=== PATIENT | female | born 1955 | race Caucasian/White ===

== ENCOUNTER 2017-07-26 12:49 | Inpatient (IN) | payer OTHER ==
[2017-07-26 12:50] VITALS: BMI 55.5
[2017-07-26] MEDS ORDERED: Metoprolol 1 mg/ml Inj IVP STA ×2 (13:48→15:13)
--- NOTE | 2017-07-26 14:33 | RAD ---
HISTORY: SOB COMPARISON: Chest x-ray performed 07/19/17 TECHNIQUE: Chest, one view. FINDINGS: Examination limited by habitus. LUNGS: Bilateral hilar prominence. Moderate pulmonary venous congestion. Please note that chest x-ray has limited sensitivity for the detection of pulmonary masses. PLEURA: No significant pleural effusion identified. No definite pneumothorax . CARDIOVASCULAR: Cardiomegaly. OSSEOUS STRUCTURES: No acute osseous abnormality identified. VISUALIZED UPPER ABDOMEN: Unremarkable. OTHER FINDINGS: None. IMPRESSION: Examination markedly limited by habitus. Cardiomegaly. Moderate pulmonary venous congestion. Bilateral hilar prominence.
[2017-07-26 14:49] LABS: BASO # 0.1 K/uL (0.0-0.2); BASO % 0.9 % (0.0-2.0); EOS # 0.5 K/uL (0.0-0.7); HEMOGLOBIN 13.1 g/dL (11.0-16.0); LYMPH # 1.9 K/uL (1.0-4.3); LYMPH % 21.7 % (20.0-40.0); MEAN CORPUSCULAR HEMOGLOBIN 27.4 pg (27.0-31.0); MEAN PLATELET VOLUME 8.6 fL (7.2-11.7); MONO # 0.8 K/uL (0.0-0.8); MONO % 9.6 % (0.0-10.0); NEUT # 5.4 K/uL (1.8-7.0); NEUT % 61.8 % (50.0-75.0); RBC 4.79 Mil/uL (3.80-5.20); RED CELL DISTRIBUTION WIDTH 15.5 % (11.5-14.5); WHITE BLOOD COUNT 8.8 K/uL (4.8-10.8)
[2017-07-26] MEDS ORDERED: Digoxin 500 mcg/2ml (0.5 mg/2ml) Inj IVP STA (15:03)
[2017-07-26] MEDS ORDERED: Sodium Chloride 0.9% 500 ML IV STA (15:13)
[2017-07-26] MEDS ORDERED: Digoxin 500 mcg/2ml (0.5 mg/2ml) Inj ONE (15:14)
[2017-07-26 15:19] LABS: INR 1.2; PROTHROMBIN TIME 13.2 SECONDS (9.7-12.2)
[2017-07-26] MEDS ORDERED: Metoprolol 1 mg/ml Inj IVP ONE ×4 (15:20→15:30)
[2017-07-26 15:22] LABS: ALB/GLOB RATIO 1.3 (1.0-2.1); ALBUMIN 3.6 g/dL (3.5-5.0); ALT/SGPT 43 U/L (9-52); AST/SGOT 26 U/L (14-36); BLOOD UREA NITROGEN 22 mg/dL (7-17); CALCIUM 9.2 mg/dl (8.6-10.4); GFR AFRICAN-AMERICAN > 60; GFR NON-AFRICAN AMERICAN > 60; MAGNESIUM 1.7 mg/dL (1.6-2.3)
[2017-07-26 15:40] VITALS: PULSE 145
--- NOTE | 2017-07-26 15:57 | CP.PCM.CON ---
History of Present Illness - History of Present Illness History of Present Illness: CCU Consult Note CC: Rapid Afib HPI: Pt is a 61yo female with past medical history of HTN, HCHOL, Hypothyroidism PE, DM2 presented to the emergency department for shortness of breathe. Patient reports that she has had bronchitis for the past three weeks and her breathing has not improved. Upon presentation to the ER ECG showed afib. Patient reports priot diagnosis of cardiac arrythmia but was unsure as to what type. 15mg of lopressor, 0.5mg digoxin, 500ml NS and BiPap were administered in the ED. ICU was consulted for afib and shortness of breath. PMHx: HTN, HCHOL, hypothyroidism, PE, DM2 and gastritis SHx: denied Allergies: NKDA Social: former smoker, denied ETOH and drugs This is a 61F with possible paroxysmal afib/ new onset afib with dyspnea Cardio: Afib digoxin 0.5mg given in ER Lopressor 15mg given in ER 500ml bolus NS given in ER Lopressor 75mg PO Q12hr follow up: CXR, pro BNP, TSH, dimer no ICU admission needed at this time. Past Patient History - Infectious Disease Hx of Infectious Diseases: None - Past Medical History & Family History Past Medical History?: Yes - Past Social History Smoking Status: Former Smoker - CARDIAC Hx Cardiac Disorders: Yes Hx Hypercholesterolemia: Yes Hx Hypertension: Yes - PULMONARY Hx Respiratory Disorders: Yes Hx Pulmonary Embolism: Yes Other/Comment: HX OF COLAPSE LUNGS - NEUROLOGICAL Hx Neurological Disorder: No - RENAL Hx Chronic Kidney Disease: No - ENDOCRINE/METABOLIC Hx Endocrine Disorders: Yes Hx Hypothyroidism: Yes - HEMATOLOGICAL/ONCOLOGICAL Hx Blood Disorders: No - INTEGUMENTARY Hx Dermatological Problems: No - MUSCULOSKELETAL/RHEUMATOLOGICAL Hx Musculoskeletal Disorders: Yes Hx Arthritis: Yes (KNEES) - GASTROINTESTINAL Hx Gastrointestinal Disorders: Yes Other/Comment: UPPER ABDOMINAL PAIN - GENITOURINARY/GYNECOLOGICAL Hx Genitourinary Disorders: No - PSYCHIATRIC Hx Psychophysiologic Disorder: No Hx Substance Use: No - SURGICAL HISTORY Hx Surgeries: Yes Hx Hysterectomy: Yes Other/Comment: CYST REMOVED LEFT BREAST - ANESTHESIA Hx Anesthesia: Yes Hx Anesthesia Reactions: No Hx Malignant Hyperthermia: No Meds Allergies/Adverse Reactions: Allergies Allergy/AdvReac Type Severity Reaction Status Date / Time No Known Allergies Allergy Verified 01/04/15 08:00 - Medications Medications: Current Medications Lactated Ringer's (Lactated Ringer's) 1,000 mls @ 100 mls/hr IV .Q10H [facility] Metoprolol Tartrate (Lopressor) 75 mg PO Q12 [facility]LA Results - Vital Signs Recent Vital Signs: Last Vital Signs Temp 97.3 F L 07/26/17 13:09 Pulse 83 07/26/17 15:30 Resp 16 07/26/17 15:04 BP 135/76 07/26/17 15:24 Pulse Ox 100 07/26/17 15:04 - Labs Result Diagrams: 07/26/17 14:42 07/26/17 14:42 Labs: Laboratory Results - last 24 hr 07/26/17 07/26/17 07/26/17 14:42 14:42 14:42 WBC 8.8 RBC 4.79 Hgb 13.1 Hct 39.8 MCV 83.0 D MCH 27.4 MCHC 33.0 RDW 15.5 H Plt Count 254 MPV 8.6 Neut % (Auto) 61.8 Lymph % (Auto) 21.7 [place] % (Auto) 9.6 Eos % (Auto) 6.0 H Baso % (Auto) 0.9 Neut # (Auto) 5.4 Lymph # (Auto) 1.9 [place] # (Auto) 0.8 Eos # (Auto) 0.5 Baso # (Auto) 0.1 PT 13.2 H INR 1.2 APTT 34 D-Dimer, Quantitative 279 H Sodium 141 Potassium 4.1 Chloride 106 Carbon Dioxide 25 Anion Gap 14 BUN 22 H Creatinine 0.7 Est GFR ( Amer) > 60 Est GFR (Non-Af Amer) > 60 Random Glucose 126 H Calcium 9.2 Magnesium 1.7 Total Bilirubin 0.5 AST 26 ALT 43 Alkaline Phosphatase 112 Total Protein 6.5 Albumin 3.6 Globulin 2.9 Albumin/Globulin Ratio 1.3
[2017-07-26] MEDS ORDERED: Lactated Ringer's 1,000 ML ONE (16:31)
[2017-07-26 16:33] LABS: T3 1.56 nmol/L (1.49-2.60)
[2017-07-26] MEDS: Lactated Ringer's 1,000 ML IV SCH (16:35)
[2017-07-26 17:13] LABS: B-TYPE NATRIURETIC PEPTIDE 1260 pg/mL (0-900)
[2017-07-26 17:20] LABS: FREE T4 1.23 ng/dL (0.78-2.19)
--- NOTE | 2017-07-26 17:29 | C.PDOC ---
Time Seen by Provider: 07/26/17 13:35 Chief Complaint (Nursing): Shortness Of Breath History Per: Patient Onset/Duration Of Symptoms: Days (about 2 weeks) Current Symptoms Are (Timing): Worse Current Respiratory Medications: See Home Med List Severity: Moderate Reports Recently: Treated By A Physician Additional History Per: Prior Records Past Medical History Reviewed: Historical Data, Nursing Documentation, Vital Signs Vital Signs: Last Vital Signs Temp 97.3 F L 07/26/17 13:09 Pulse 106 H 07/26/17 16:52 Resp 22 07/26/17 16:52 BP 122/69 07/26/17 16:52 Pulse Ox 100 07/26/17 17:31 - Medical History PMH: Arthritis (KNEES), Cardia Arrhythmia, Diabetes, HTN, Hypercholesterolemia, Hypothyroidism, Pulmonary Embolism - [facility] Procedures CLOSED ENDOSCOPIC BIOPSY OF LARGE INTESTINE (11/10/14) ESOPHAGOGASTRODUODENOSCOPY [EGD] W/CLOSED BIOPSY (01/04/15) Family History: States: Unknown Family Hx - Social History Hx Tobacco Use: No Hx Alcohol Use: No Hx Substance Use: No - Immunization History Hx Influenza Vaccination: No Hx Pneumococcal Vaccination: No Review Of Systems Except As Marked, All Systems Reviewed And Found Negative. Constitutional: Negative for: Fever Cardiovascular: Positive for: Edema. Negative for: Chest Pain Respiratory: Positive for: Shortness of Breath. Negative for: Cough Gastrointestinal: Negative for: Vomiting Musculoskeletal: Negative for: Neck Pain Neurological: Negative for: Weakness, Numbness, Altered Mental Status Physical Exam - Physical Exam Appears: In Acute Distress, Chronically Ill Skin: Normal Color, Warm, Dry Head: Atraumatic, Normacephalic Eye(s): bilateral: PERRL, EOMI Neck: Normal ROM, Supple Cardiovascular: Rhythm Irregular (tachycardia) Respiratory: No Accessory Muscle Use, Rales (at bases) Gastrointestinal/Abdominal: Soft, No Tenderness Extremity: Normal ROM, Pedal Edema Neurological/Psych: Oriented x3, Normal Motor, Normal Sensation ED Course And Treatment - Laboratory Results Result Diagrams: 07/26/17 14:42 07/26/17 14:42 Lab Interpretation: Abnormal Interpretation Of Abnormal: Elevated BNP ECG: Interpreted By Me, Viewed By Me ECG Rhythm: Atrial Fibrillation, Nonspecific Changes ECG Interpretation: Abnormal Rate From EC O2 Sat by Pulse Oximetry: 100 Pulse Ox Interpretation: Normal - Radiology CXR: Viewed By Me, Read By Radiologist CXR Interpretation: Yes: Cardiomegaly, Other (CHF) Progress Note: Pt's blood pressure was borderline upon ED arrival. Pt's HR decreased and BP improved after meds. Pt feels better. Reassessment Condition: Improved - Physician Consult Information Physician Contacted: Ki Schneider (ICU) Outcome Of Conversation: Pt evaluated pt in the ED and requested pt be placed on BiPAP and given IV fluid bolus, Metoprolol 5mg IVP x3, and Digoxin 0.5mg IV. after which pt improved. Therefore he states that there is no need for ICU admission and that pt can safely be admitted to telemetry floor. Progress - Interventions Interventions:: Observation, Intravenous fluid, Oxygen - Medications Administered Intravenous: Other (Digoxin, Metoprolol) - Data Reviewed Data Reviewed: Lab, Diagnostic imaging, EKG, Old records - Patient Status Patient status: Partially improved - Critical Care Citical Care: Excluding Proc Time Critical Care Time: 60 minutes - Continuity of Care Discussed patient case with:: Patient, Family-HIPPA compliant, ED Nurse, Covering for PMD Discussed pt. case with strategic sourcing consultant/specialty: Pulmonary/Crit. Care - Patient Plan Patient Plan: Admission, Telemetry Disposition Discussed With Dr.: Emmy Abel (Covering) Comment: He accepted pt on his service. Doctor Will See Patient In The: Hospital Counseled Patient/Family Regarding: Studies Performed, Diagnosis - Disposition Disposition: HOSPITALIZED Disposition Time: 18:00 Condition: GUARDED - Clinical Impression Clinical Impression: Atrial fibrillation with rapid ventricular response, Acute exacerbation of CHF (congestive heart failure)
[2017-07-26] MEDS: (Novolin R) Insulin Human Regular 100 units/ml vial SC SCH (21:30)
[2017-07-26] MEDS: GlipiZIDE 5 mg SR Tab PO SCH (21:31)
[2017-07-26] MEDS ORDERED: Iodixanol 320 MG/ML 100 ML BOTTLE IV ONE (21:45)
[2017-07-26] MEDS ORDERED: Enoxaparin 30 mg Syringe SC SCH (22:00)
--- NOTE | 2017-07-26 22:47 | CT ---
EXAM: CT Angiography Chest With Intravenous Contrast EXAM DATE/TIME: 07/26/2017 8:45 PM CLINICAL HISTORY: 61 years old, female; Signs and symptoms and abnormal findings; Abnormal diagnostic tests; Elevated d-dimer; Shortness of breath; Additional info: D. [id number]. To R/O pe TECHNIQUE: Axial computed tomographic angiography images of the chest with intravenous contrast using pulmonary embolism protocol. All CT scans at this facility use one or more dose reduction techniques, viz.: automated exposure control; ma/kV adjustment per patient size (including targeted exams where dose is matched to indication; i.e. head); or iterative reconstruction technique. MIP reconstructed images were created and reviewed. Coronal and sagittal reformatted images were created and reviewed. CONTRAST: 100 mL of VISIPAQUE 320 administered intravenously. COMPARISON: None is available currently. FINDINGS: LIMITATIONS: Artifact related to the patient's body habitus. Mild respiratory motion artifact. PULMONARY ARTERIES: Exam is somewhat limited for the detection of pulmonary emboli secondary to respiratory motion. Allowing for this, no definite pulmonary emboli are seen. AORTA: Exam is nondiagnostic for the detection of aortic dissection because of suboptimal enhancement of the aorta. LUNGS: Findings suspicious for subtle diffuse ground glass consolidation in the lungs bilaterally. There is a mosaic appearance of the lungs bilaterally, with scattered areas of hyperlucency seen, along with subtle diffuse areas increased attenuation. Compressive and/or dependent atelectatic changes noted in the posterior lung bases. PLEURAL SPACE: Moderate bilateral pleural effusions. No pneumothorax is seen. HEART: Heart appears mildly enlarged. Coronary artery calcification. No evidence of significant pericardial effusion. BONES/JOINTS: No acute bony abnormality identified. SOFT TISSUES: No acute abnormality of the visualized soft tissues seen. LYMPH NODES: Mild bilateral hilar and mediastinal lymphadenopathy. Most of the lymph nodes are small in size, but there are multiple mildly enlarged lymph nodes visualized. No evidence of diffuse pathologic lymphadenopathy. IMPRESSION: - Moderate bilateral pleural effusions. - Findings suspicious for subtle, diffuse groundglass consolidation in the lungs bilaterally. In an acute setting, this could be due to diffuse groundglass infiltrates/pneumonia or early alveolar pulmonary edema. Recommend clinical correlation. - Otherwise, no evidence of significant acute process. No evidence of pulmonary embolism. - Mild hilar and mediastinal lymphadenopathy. This is a nonspecific finding, and may be reactive in etiology. - Mild cardiomegaly. - See above for remaining findings.
[2017-07-26 23:01] LABS: CK-MB 0.52 ng/mL (0.0-3.38)
--- NOTE | 2017-07-26 23:16 | CP.PCM.HP ---
History of Present Illness - History of Present Illness History of Present Illness: Pt is a 61yo female with past medical history of HTN, HCHOL, Hypothyroidism PE, DM2 presented to the emergency department for shortness of breathe. Patient reports that she has had bronchitis for the past three weeks and her breathing has not improved. Upon presentation to the ER ECG showed afib. Patient reports priot diagnosis of cardiac arrythmia but was unsure as to what type. IN ER PT BECAME HYPOTENSIVE FROM MULTIPLE SHORT TERM IV MEDICATION RESPONDED TO IV FLUIDS Present on Admission - Present on Admission Any Indicators Present on Admission: No Review of Systems - Review of Systems All systems: reviewed and no additional remarkable complaints except (SOB / PALPITAION) Past Patient History - Infectious Disease Hx of Infectious Diseases: None - Past Medical History & Family History Past Medical History?: Yes - Past Social History Smoking Status: Former Smoker - CARDIAC Hx Cardia Arrhythmia: Yes Hx Hypercholesterolemia: Yes Hx Hypertension: Yes - PULMONARY Hx Pulmonary Embolism: Yes - NEUROLOGICAL Hx Neurological Disorder: No - RENAL Hx Chronic Kidney Disease: No - ENDOCRINE/METABOLIC Hx Hypothyroidism: Yes - HEMATOLOGICAL/ONCOLOGICAL Hx Blood Disorders: No Hx Blood Transfusions: No - INTEGUMENTARY Hx Dermatological Problems: No - MUSCULOSKELETAL/RHEUMATOLOGICAL Hx Arthritis: Yes (KNEES) Hx Falls: No - GASTROINTESTINAL Hx Gastrointestinal Disorders: Yes Other/Comment: UPPER ABDOMINAL PAIN - GENITOURINARY/GYNECOLOGICAL Hx Genitourinary Disorders: No - PSYCHIATRIC Hx Substance Use: No - SURGICAL HISTORY Hx Surgeries: Yes Hx Hysterectomy: Yes Other/Comment: CYST REMOVED LEFT BREAST - ANESTHESIA Hx Anesthesia: Yes Hx Anesthesia Reactions: No Hx Malignant Hyperthermia: No Has any member of the family had a problem w/ anesthesia?: No Meds Allergies/Adverse Reactions: Allergies Allergy/AdvReac Type Severity Reaction Status Date / Time No Known Allergies Allergy Verified 01/04/15 08:00 Physical Exam - Constitutional Appears: Well - Head Exam Head Exam: ATRAUMATIC, NORMAL INSPECTION, NORMOCEPHALIC - Eye Exam Eye Exam: EOMI, Normal appearance, PERRL - ENT Exam ENT Exam: Mucous Membranes Moist, Normal Exam - Neck Exam Neck exam: Positive for: Normal Inspection - Respiratory Exam Respiratory Exam: Clear to Auscultation Bilateral, NORMAL BREATHING PATTERN - Cardiovascular Exam Cardiovascular Exam: Irregular Rhythm, +S1, +S2, Systolic Murmur - GI/Abdominal Exam GI & Abdominal Exam: Normal Bowel Sounds, Soft. absent: Tenderness - Rectal Exam Rectal Exam: Deferred - Extremities Exam Extremities exam: Positive for: normal inspection. Negative for: calf tenderness - Back Exam Back exam: NORMAL INSPECTION Results - Vital Signs Recent Vital Signs: Last Vital Signs Temp 99.2 F 07/26/17 20:18 Pulse 94 H 07/26/17 20:18 Resp 20 07/26/17 20:18 BP 132/82 07/26/17 20:18 Pulse Ox 98 07/26/17 20:18 - Labs Result Diagrams: 07/27/17 07:36 07/27/17 07:36 Labs: Laboratory Results - last 24 hr 07/26/17 07/26/17 07/26/17 14:42 14:42 14:42 WBC 8.8 RBC 4.79 Hgb 13.1 Hct 39.8 MCV 83.0 D MCH 27.4 MCHC 33.0 RDW 15.5 H Plt Count 254 MPV 8.6 Neut % (Auto) 61.8 Lymph % (Auto) 21.7 [place] % (Auto) 9.6 Eos % (Auto) 6.0 H Baso % (Auto) 0.9 Neut # (Auto) 5.4 Lymph # (Auto) 1.9 [place] # (Auto) 0.8 Eos # (Auto) 0.5 Baso # (Auto) 0.1 PT 13.2 H INR 1.2 APTT 34 D-Dimer, Quantitative 279 H Sodium 141 Potassium 4.1 Chloride 106 Carbon Dioxide 25 Anion Gap 14 BUN 22 H Creatinine 0.7 Est GFR ( Amer) > 60 Est GFR (Non-Af Amer) > 60 POC Glucose (mg/dL) Random Glucose 126 H Calcium 9.2 Magnesium 1.7 Total Bilirubin 0.5 AST 26 ALT 43 Alkaline Phosphatase 112 Total Creatine Kinase CK-MB (Mass) Troponin I < 0.0120 NT-Pro-B Natriuret Pep 1260 H Total Protein 6.5 Albumin 3.6 Globulin 2.9 Albumin/Globulin Ratio 1.3 Free T4 Total T3 1.56 TSH 3rd Generation 07/26/17 07/26/17 07/26/17 14:42 21:23 22:35 WBC RBC Hgb Hct MCV MCH MCHC RDW Plt Count MPV Neut % (Auto) Lymph % (Auto) [place] % (Auto) Eos % (Auto) Baso % (Auto) Neut # (Auto) Lymph # (Auto) [place] # (Auto) Eos # (Auto) Baso # (Auto) PT INR APTT D-Dimer, Quantitative Sodium Potassium Chloride Carbon Dioxide Anion Gap BUN Creatinine Est GFR ( Amer) Est GFR (Non-Af Amer) POC Glucose (mg/dL) 101 Random Glucose Calcium Magnesium Total Bilirubin AST ALT Alkaline Phosphatase Total Creatine Kinase 48 CK-MB (Mass) 0.52 Troponin I < 0.0120 NT-Pro-B Natriuret Pep Total Protein Albumin Globulin Albumin/Globulin Ratio Free T4 1.23 Total T3 TSH 3rd Generation 5.44 H Assessment & Plan (1) Acute exacerbation of CHF (congestive heart failure) Status: Acute (2) Atrial fibrillation with rapid ventricular response Status: Acute
[2017-07-27] MEDS: Lactated Ringer's 1,000 ML IV SCH (01:40)
[2017-07-27] MEDS: Levothyroxine 75 MCG TAB PO SCH (06:11)
[2017-07-27] MEDS: (Novolin R) Insulin Human Regular 100 units/ml vial SC SCH ×4 (07:55→21:56)
[2017-07-27 08:05] LABS: ALB/GLOB RATIO 1.2 (1.0-2.1); ALBUMIN 3.6 g/dL (3.5-5.0); ALT/SGPT 54 U/L (9-52); AST/SGOT 34 U/L (14-36); BLOOD UREA NITROGEN 18 mg/dL (7-17); CALCIUM 8.9 mg/dl (8.6-10.4); GFR AFRICAN-AMERICAN > 60; GFR NON-AFRICAN AMERICAN > 60
[2017-07-27 08:06] LABS: CK-MB 0.57 ng/mL (0.0-3.38)
[2017-07-27 08:14] LABS: HEMOGLOBIN 13.1 g/dL (11.0-16.0); MEAN CELL VOLUME 83.6 fL (81.0-99.0); MEAN CORPUSCULAR HEMOGLOBIN 28.2 pg (27.0-31.0); MEAN CORPUSCULAR HGB CONC 33.7 g/dL (33.0-37.0); MEAN PLATELET VOLUME 8.8 fL (7.2-11.7); RBC 4.66 Mil/uL (3.80-5.20); RED CELL DISTRIBUTION WIDTH 15.1 % (11.5-14.5); WHITE BLOOD COUNT 8.9 K/uL (4.8-10.8)
[2017-07-27] MEDS: Sodium Chloride 0.9% 1,000 ML IV SCH ×2 (08:46→22:01)
--- NOTE | 2017-07-27 09:32 | CP.PCM.PN ---
Subjective - Date & Time of Evaluation Date of Evaluation: 07/27/17 Time of Evaluation: 09:00 - Subjective Subjective: RN INTERNATIONAL NOTES RN called to reported HR IN 170's AND A FIB patient seen and examined, c/o heart raising fast , denies any chest pain, sob , diaphoresis, abdominal pain N/V/ a fib on monitor non sustained rate between 150- 170's Objective - Vital Signs/Intake and Output Vital Signs (last 24 hours): Temp Pulse Resp BP Pulse Ox 97.6 F 120 H 18 130/92 H 97 07/27/17 07:00 07/27/17 08:46 07/27/17 07:00 07/27/17 08:46 07/27/17 07:00 - Medications Medications: Current Medications Aspirin (Ecotrin) 81 mg PO DAILY [facility] Diltiazem HCl (Cardizem) 30 mg PO Q6 [facility] Enoxaparin Sodium (Lovenox) 100 mg SC Q12 [facility] Furosemide (Lasix) 40 mg IVP DAILY [facility] Glipizide (Glucotrol Xl) 5 mg PO [facility] Last Admin: 07/26/17 21:31 Dose: 5 mg Lactated Ringer's (Lactated Ringer's) 1,000 mls @ 100 mls/hr IV .Q10H [facility] Last Admin: 07/27/17 01:40 Dose: Not Given Sodium Chloride (Sodium Chloride 0.9%) 1,000 mls @ 100 mls/hr IV .Q10H [facility] Last Admin: 07/27/17 08:46 Dose: 100 mls/hr Insulin Human Regular (Novolin R) 1 unit SC ACHS [facility] PRN Reason: Protocol Last Admin: 07/27/17 07:55 Dose: Not Given Levothyroxine Sodium (Synthroid) 75 mcg PO DAILY@0630 [facility] Last Admin: 07/27/17 06:11 Dose: 75 mcg Metformin HCl (Glucophage) 500 mg PO BID [facility] Metoprolol Tartrate (Lopressor) 75 mg PO Q12 [facility] Last Admin: 07/26/17 21:32 Dose: Not Given Montelukast Sodium (Singulair) 10 mg PO DAILY [facility] Rosuvastatin Calcium (Crestor) 5 mg PO HS [facility] Last Admin: 07/26/17 21:31 Dose: 5 mg - Labs Labs: 07/27/17 07:36 07/27/17 07:36 PT 13.2 SECONDS (9.7-12.2) H 07/26/17 14:42 INR 1.2 07/26/17 14:42 APTT 34 SECONDS (21-34) 07/26/17 14:42 - Constitutional Appears: No Acute Distress - Respiratory Exam Respiratory Exam: Decreased Breath Sounds, NORMAL BREATHING PATTERN - Cardiovascular Exam Cardiovascular Exam: Irregular Rhythm, +S1, +S2 (a fib on monitor ) Assessment and Plan - Assessment and Plan (Free Text) Assessment: A/P 61yo female with past medical history of HTN, HCHOL, Hypothyroidism DM2 admitted for shortness of breath/ a FIB Patient received cardizem IV push and digoxin on admission EKG - done . a fib with RVR CARDIZEM 10 MG IV PUSH STAT and continue cardizem drip at 5 ml to keep hr below 110 ( as per pharmacy no cardizem drip available only verapamil ) so cardizem po started q6 hr after cardizem IVP HR below 130 and patient hemodynamicaly stable lovenox started at 100 mg q12 hr If patient hemodynamically unstable and HR uncontrolled will consult ICU the above plan discussed with Dr. Abel and who agrees with plan
[2017-07-27] MEDS: Enoxaparin 100 mg Syringe SC SCH ×2 (09:45→21:57)
[2017-07-27] MEDS ORDERED: Metoprolol Succinate 50 mg XL Tab PO SCH (10:00)
--- NOTE | 2017-07-27 14:13 | CP.PCM.PN ---
Subjective - Date & Time of Evaluation Date of Evaluation: 07/27/17 Time of Evaluation: 14:11 - Subjective Subjective: HR : A,FIB WITH VARYING RATE REQUIRING IV CARDEZAM ON PO NOW TNI NEG CT CHEST NO PE , CHF CHECK ECHO FOR LV EF Objective - Vital Signs/Intake and Output Vital Signs (last 24 hours): Temp Pulse Resp BP Pulse Ox 97.6 F 110 H 18 128/79 97 07/27/17 07:00 07/27/17 11:56 07/27/17 07:00 07/27/17 11:56 07/27/17 07:00 - Medications Medications: Current Medications Aspirin (Ecotrin) 81 mg PO DAILY [facility] Last Admin: 07/27/17 09:46 Dose: 81 mg Diltiazem HCl (Cardizem) 30 mg PO Q6 [facility] Last Admin: 07/27/17 11:57 Dose: 30 mg Enoxaparin Sodium (Lovenox) 100 mg SC Q12 [facility] Last Admin: 07/27/17 09:45 Dose: 100 mg Furosemide (Lasix) 40 mg IVP DAILY [facility] Last Admin: 07/27/17 09:46 Dose: 40 mg Glipizide (Glucotrol Xl) 5 mg PO HS [facility] Last Admin: 07/26/17 21:31 Dose: 5 mg Lactated Ringer's (Lactated Ringer's) 1,000 mls @ 100 mls/hr IV .Q10H [facility] Last Admin: 07/27/17 01:40 Dose: Not Given Sodium Chloride (Sodium Chloride 0.9%) 1,000 mls @ 100 mls/hr IV .Q10H [facility] Last Admin: 07/27/17 08:46 Dose: 100 mls/hr Insulin Human Regular (Novolin R) 1 unit SC [facility] PRN Reason: Protocol Last Admin: 07/27/17 12:49 Dose: Not Given Levothyroxine Sodium (Synthroid) 75 mcg PO DAILY@0630 [facility] Last Admin: 07/27/17 06:11 Dose: 75 mcg Metformin HCl (Glucophage) 500 mg PO BID [facility] Metoprolol Tartrate (Lopressor) 75 mg PO Q12 [facility] Last Admin: 07/27/17 09:45 Dose: 75 mg Montelukast Sodium (Singulair) 10 mg PO DAILY [facility] Last Admin: 07/27/17 09:46 Dose: 10 mg Rosuvastatin Calcium (Crestor) 5 mg PO HS [facility] Last Admin: 07/26/17 21:31 Dose: 5 mg - Labs Labs: 07/27/17 07:36 07/27/17 07:36 PT 13.2 SECONDS (9.7-12.2) H 07/26/17 14:42 INR 1.2 07/26/17 14:42 APTT 34 SECONDS (21-34) 07/26/17 14:42 Assessment and Plan (1) Acute exacerbation of CHF (congestive heart failure) Status: Acute (2) Atrial fibrillation with rapid ventricular response Status: Acute
--- NOTE | 2017-07-27 18:41 | CARD ---
APPROVED REPORT EXAM: Two-dimensional and M-mode echocardiogram with Doppler and color Doppler. Other Information Quality : GoodRhythm : INDICATION Atrial Fibrillation Congestive Heart Failure CHECK EF 2D DIMENSIONS IVSd1.1 (0.7-1.1cm)LVDd5.0 (3.9-5.9cm) PWd1.2 (0.7-1.1cm)LVDs4.1 (2.5-4.0cm) FS (%) 18.7 %LVEF (%)38.5 (>50%) M-Mode DIMENSIONS Left Atrium (MM)5.05 (2.5-4.0cm)Aortic Root2.74 (2.2-3.7cm) Aortic Cusp Exc.1.95 (1.5-2.0cm) Mitral Valve MV E Nexpagdb299.2cm/sE/A ratio0.0 TDI E/Lateral E'0.0E/Medial E'0.0 Tricuspid Valve TR Peak [id number]/sTR Peak Gr.[id number] LEFT VENTRICLE The left ventricle is normal size. There is borderline concentric left ventricular hypertrophy. Left ventricle systolic function is mildly impaired. The Ejection Fraction is 45-50%. There is global hypokinesis of the left ventricle. A Fib There is no ventricular septal defect visualized. RIGHT VENTRICLE The right ventricle is normal size. The right ventricular systolic function is normal. ATRIA The left atrium is mildly dilated. The right atrium size is normal. AORTIC VALVE The aortic valve is mildly sclerotic. The aortic valve is tri-cuspid. No aortic regurgitation is present. There is no aortic valvular stenosis. MITRAL VALVE The mitral valve is normal in structure. There is no evidence of mitral valve prolapse. Mitral regurgitation is mild.ERO 0.4 cm2 TRICUSPID VALVE The tricuspid valve is normal in structure. There is moderate tricuspid regurgitation. Right ventricular systolic pressure is estimated at 50-60 mmHg. There is moderate-severe pulmonary hypertension. PULMONIC VALVE The pulmonic valve is not well visualized. There is trace pulmonic valvular regurgitation. GREAT VESSELS The aortic root is normal in size. The ascending aorta is normal in size. The IVC is dilated. PERICARDIAL EFFUSION There is no pericardial effusion. <Conclusion> There is borderline concentric left ventricular hypertrophy. Left ventricle systolic function is mildly impaired. The Ejection Fraction is 45-50%. There is global hypokinesis of the left ventricle. Mitral regurgitation is mild.ERO 0.4 cm2 There is moderate-severe pulmonary hypertension.
--- NOTE | 2017-07-27 19:18 | CARD ---
APPROVED REPORT EKG Measurement Heart [id number] <Conclusion> Atrial fibrillation with rapid ventricular response Abnormal ECG
[2017-07-27] MEDS: GlipiZIDE 5 mg SR Tab PO SCH (21:57)
[2017-07-28] MEDS: Sodium Chloride 0.9% 1,000 ML IV SCH ×3 (05:34→19:44)
[2017-07-28] MEDS: Levothyroxine 75 MCG TAB PO SCH (05:51)
[2017-07-28] MEDS: (Novolin R) Insulin Human Regular 100 units/ml vial SC SCH ×4 (08:09→21:36)
[2017-07-28] MEDS: Enoxaparin 100 mg Syringe SC SCH ×2 (09:18→21:56)
--- NOTE | 2017-07-28 14:42 | CP.PCM.PN ---
Subjective - Date & Time of Evaluation Date of Evaluation: 07/28/17 Time of Evaluation: 14:41 - Subjective Subjective: JENNIFER NEG HR BETTER ECHO TO BE EVALUATED CPT Objective - Vital Signs/Intake and Output Vital Signs (last 24 hours): Temp Pulse Resp BP Pulse Ox 98.0 F 108 H 20 134/80 98 07/28/17 07:59 07/28/17 12:30 07/28/17 07:59 07/28/17 09:18 07/28/17 07:59 Intake and Output: 07/28/17 07/28/17 11:59 23:59 Intake Total 830 Balance 830 - Medications Medications: Current Medications Aspirin (Ecotrin) 81 mg PO DAILY [facility] [place] Last Admin: 07/28/17 09:18 Dose: 81 mg Diltiazem HCl (Cardizem) 30 mg PO Q6 [facility] [place] Last Admin: 07/28/17 13:15 Dose: 30 mg Enoxaparin Sodium (Lovenox) 100 mg SC Q12 [facility] [place] Last Admin: 07/28/17 09:18 Dose: 100 mg Furosemide (Lasix) 40 mg IVP DAILY [facility] [place] Last Admin: 07/28/17 09:18 Dose: 40 mg Glipizide (Glucotrol Xl) 5 mg PO HS [facility] [place] Last Admin: 07/27/17 21:57 Dose: 5 mg Lactated Ringer's (Lactated Ringer's) 1,000 mls @ 100 mls/hr IV .Q10H [facility] [place] Last Admin: 07/27/17 01:40 Dose: Not Given Sodium Chloride (Sodium Chloride 0.9%) 1,000 mls @ 100 mls/hr IV .Q10H [facility] [place] Last Admin: 07/28/17 05:34 Dose: Not Given Insulin Human Regular (Novolin R) 1 unit SC ACHS [facility] [place] PRN Reason: Protocol Last Admin: 07/28/17 12:20 Dose: Not Given Levothyroxine Sodium (Synthroid) 75 mcg PO DAILY@0630 [facility] [place] Last Admin: 07/28/17 05:51 Dose: 75 mcg Metformin HCl (Glucophage) 500 mg PO BID [facility] [place] Metoprolol Tartrate (Lopressor) 75 mg PO Q12 [facility] [place] Last Admin: 07/28/17 09:18 Dose: 75 mg Montelukast Sodium (Singulair) 10 mg PO DAILY [facility] [place] Last Admin: 07/28/17 09:18 Dose: 10 mg Rosuvastatin Calcium (Crestor) 5 mg PO HS [facility] Last Admin: 07/27/17 21:57 Dose: 5 mg - Labs Labs: 07/27/17 07:36 07/27/17 07:36 PT 13.2 SECONDS (9.7-12.2) H 07/26/17 14:42 INR 1.2 07/26/17 14:42 APTT 34 SECONDS (21-34) 07/26/17 14:42 Assessment and Plan (1) Acute exacerbation of CHF (congestive heart failure) Status: Acute (2) Atrial fibrillation with rapid ventricular response Status: Acute
[2017-07-28] MEDS: GlipiZIDE 5 mg SR Tab PO SCH (21:56)
[2017-07-29] MEDS: Levothyroxine 75 MCG TAB PO SCH (06:20)
[2017-07-29] MEDS: (Novolin R) Insulin Human Regular 100 units/ml vial SC SCH ×4 (07:22→22:26)
[2017-07-29] MEDS: Enoxaparin 100 mg Syringe SC SCH ×2 (10:23→22:52)
[2017-07-29] MEDS: Sodium Chloride 0.9% 1,000 ML IV SCH ×2 (11:01→21:00)
--- NOTE | 2017-07-29 15:30 | CP.PCM.PN ---
Subjective - Date & Time of Evaluation Date of Evaluation: 07/29/17 Time of Evaluation: 15:29 - Subjective Subjective: CHF RESOLVED PT IS NEAR N LV EF LV FILLING PRESSURES ARE UP MILD MR MOD PULM HTN CONT LASIX PT TAKES ELAQUIS AT HOME Objective - Vital Signs/Intake and Output Vital Signs (last 24 hours): Temp Pulse Resp BP Pulse Ox 97.7 F 86 18 102/75 97 07/29/17 08:30 07/29/17 08:30 07/29/17 08:30 07/29/17 10:22 07/29/17 08:30 Intake and Output: 07/29/17 07/29/17 11:59 23:59 Intake Total 880 Balance 880 - Medications Medications: Current Medications Aspirin (Ecotrin) 81 mg PO DAILY [facility] Last Admin: 07/29/17 10:22 Dose: 81 mg Diltiazem HCl (Cardizem) 30 mg PO Q6 [facility] Last Admin: 07/29/17 12:00 Dose: 30 mg Enoxaparin Sodium (Lovenox) 100 mg SC Q12 [facility] Last Admin: 07/29/17 10:23 Dose: 100 mg Furosemide (Lasix) 40 mg IVP DAILY [facility] Last Admin: 07/29/17 10:22 Dose: 40 mg Glipizide (Glucotrol Xl) 5 mg PO HS [facility] Last Admin: 07/28/17 21:56 Dose: 5 mg Lactated Ringer's (Lactated Ringer's) 1,000 mls @ 100 mls/hr IV .Q10H [facility] Last Admin: 07/27/17 01:40 Dose: Not Given Sodium Chloride (Sodium Chloride 0.9%) 1,000 mls @ 100 mls/hr IV .Q10H [facility] Last Admin: 07/29/17 11:01 Dose: 100 mls/hr Insulin Human Regular (Novolin R) 1 unit SC ACHS [facility] PRN Reason: Protocol Last Admin: 07/29/17 12:00 Dose: Not Given Levothyroxine Sodium (Synthroid) 75 mcg PO DAILY@0630 [facility] Last Admin: 07/29/17 06:20 Dose: 75 mcg Metformin HCl (Glucophage) 500 mg PO BID [facility] Last Admin: 07/29/17 10:21 Dose: 500 mg Metoprolol Tartrate (Lopressor) 75 mg PO Q12 [facility] Last Admin: 07/29/17 10:19 Dose: 75 mg Montelukast Sodium (Singulair) 10 mg PO DAILY [facility] Last Admin: 07/29/17 10:21 Dose: 10 mg Rosuvastatin Calcium (Crestor) 5 mg PO HS [facility] Last Admin: 07/28/17 21:56 Dose: 5 mg - Labs Labs: 07/27/17 07:36 07/27/17 07:36 PT 13.2 SECONDS (9.7-12.2) H 07/26/17 14:42 INR 1.2 07/26/17 14:42 APTT 34 SECONDS (21-34) 07/26/17 14:42 Assessment and Plan (1) Acute exacerbation of CHF (congestive heart failure) Status: Acute (2) Atrial fibrillation with rapid ventricular response Status: Acute
[2017-07-29 16:31] VITALS: RESP 20
--- NOTE | 2017-07-29 19:34 | CARD ---
APPROVED REPORT EKG Measurement Heart [id number] <Conclusion> Atrial fibrillation with rapid ventricular response Rightward axis Low voltage QRS Abnormal ECG
[2017-07-29] MEDS: GlipiZIDE 5 mg SR Tab PO SCH (22:51)
[2017-07-30] MEDS: Levothyroxine 75 MCG TAB PO SCH (05:49)
[2017-07-30] MEDS: (Novolin R) Insulin Human Regular 100 units/ml vial SC SCH ×4 (08:48→22:09)
[2017-07-30] MEDS: Enoxaparin 100 mg Syringe SC SCH (10:21)
[2017-07-30] MEDS: Sodium Chloride 0.9% 1,000 ML IV SCH ×2 (10:28→20:50)
--- NOTE | 2017-07-30 13:29 | CP.PCM.DIS ---
Provider - Provider Date of Admission: 07/26/17 18:36 Attending physician: Emmy Abel MD Time Spent in preparation of Discharge (in minutes): 30 Diagnosis - Discharge Diagnosis (1) Acute exacerbation of CHF (congestive heart failure) Status: Acute (2) Atrial fibrillation with rapid ventricular response Status: Acute Hospital Course - Lab Results Lab Results: Most Recent Lab Values WBC 8.9 K/uL (4.8-10.8) 07/27/17 07:36 RBC 4.66 Mil/uL (3.80-5.20) 07/27/17 07:36 Hgb 13.1 g/dL (11.0-16.0) 07/27/17 07:36 Hct 39.0 % (34.0-47.0) 07/27/17 07:36 MCV 83.6 fL (81.0-99.0) 07/27/17 07:36 MCH 28.2 pg (27.0-31.0) 07/27/17 07:36 MCHC 33.7 g/dL (33.0-37.0) 07/27/17 07:36 RDW 15.1 % (11.5-14.5) H 07/27/17 07:36 Plt Count 274 K/uL (130-400) 07/27/17 07:36 MPV 8.8 fL (7.2-11.7) 07/27/17 07:36 Neut % (Auto) 61.8 % (50.0-75.0) 07/26/17 14:42 Lymph % (Auto) 21.7 % (20.0-40.0) 07/26/17 14:42 [place] % (Auto) 9.6 % (0.0-10.0) 07/26/17 14:42 Eos % (Auto) 6.0 % (0.0-4.0) H 07/26/17 14:42 Baso % (Auto) 0.9 % (0.0-2.0) 07/26/17 14:42 Neut # (Auto) 5.4 K/uL (1.8-7.0) 07/26/17 14:42 Lymph # (Auto) 1.9 K/uL (1.0-4.3) 07/26/17 14:42 [place] # (Auto) 0.8 K/uL (0.0-0.8) 07/26/17 14:42 Eos # (Auto) 0.5 K/uL (0.0-0.7) 07/26/17 14:42 Baso # (Auto) 0.1 K/uL (0.0-0.2) 07/26/17 14:42 PT 13.2 SECONDS (9.7-12.2) H 07/26/17 14:42 INR 1.2 07/26/17 14:42 APTT 34 SECONDS (21-34) 07/26/17 14:42 D-Dimer, Quantitative 279 ng/mlDDU (0-243) H 07/26/17 14:42 Sodium 140 mmol/L (132-148) 07/27/17 07:36 Potassium 4.3 mmol/L (3.6-5.2) 07/27/17 07:36 Chloride 105 mmol/L (98-107) 07/27/17 07:36 Carbon Dioxide 26 mmol/L (22-30) 07/27/17 07:36 Anion Gap 14 (10-20) 07/27/17 07:36 BUN 18 mg/dL (7-17) H 07/27/17 07:36 Creatinine 0.7 mg/dL (0.7-1.2) 07/27/17 07:36 Est GFR ( Amer) > 60 07/27/17 07:36 Est GFR (Non-Af Amer) > 60 07/27/17 07:36 POC Glucose (mg/dL) 151 mg/dL (65-110) H 07/30/17 11:39 Random Glucose 123 mg/dL (65-105) H 07/27/17 07:36 Calcium 8.9 mg/dl (8.6-10.4) 07/27/17 07:36 Magnesium 1.7 mg/dL (1.6-2.3) 07/26/17 14:42 Total Bilirubin 0.7 mg/dL (0.2-1.3) 07/27/17 07:36 AST 34 U/L (14-36) 07/27/17 07:36 ALT 54 U/L (9-52) H D 07/27/17 07:36 Alkaline Phosphatase 103 U/L (38-126) 07/27/17 07:36 Total Creatine Kinase 38 U/L (30-135) 07/27/17 07:36 CK-MB (Mass) 0.57 ng/mL (0.0-3.38) 07/27/17 07:36 Troponin I < 0.0120 ng/mL (0.00-0.120) 07/27/17 07:36 NT-Pro-B Natriuret Pep 1260 pg/mL (0-900) H 07/26/17 14:42 Total Protein 6.6 g/dL (6.3-8.3) 07/27/17 07:36 Albumin 3.6 g/dL (3.5-5.0) 07/27/17 07:36 Globulin 3.0 gm/dL (2.2-3.9) 07/27/17 07:36 Albumin/Globulin Ratio 1.2 (1.0-2.1) 07/27/17 07:36 Free T4 1.23 ng/dL (0.78-2.19) 07/26/17 14:42 Total T3 1.56 nmol/L (1.49-2.60) 07/26/17 14:42 TSH 3rd Generation 5.44 mIU/L (0.46-4.68) H 07/26/17 14:42 - Hospital Course Hospital Course: Pt is a 61yo female with past medical history of HTN, HCHOL, Hypothyroidism PE, DM2 presented to the emergency department for shortness of breathe. Patient reports that she has had bronchitis for the past three weeks and her breathing has not improved. Upon presentation to the ER ECG showed afib. Patient reports priot diagnosis of cardiac arrythmia but was unsure as to what type. IN ER PT BECAME HYPOTENSIVE FROM MULTIPLE SHORT TERM IV MEDICATION PT IMPROVED ON IV LASIZ ECHO ; N LV EF WITH INCREASING LV FILLING SC PT TAKED ELAQUIS AT HOME PT WILL CONT PRESENT MEDS AND WILL F/U WITH HER INFORMATION MANAGEMENT MANAGER , DR. YANEZ Discharge Exam - Head Exam Head Exam: ATRAUMATIC, NORMAL INSPECTION, NORMOCEPHALIC Discharge Plan - Follow Up Plan Condition: GUARDED Disposition: HOME/ ROUTINE
[2017-07-30] MEDS: GlipiZIDE 5 mg SR Tab PO SCH (22:03)
[2017-07-31] MEDS: Levothyroxine 75 MCG TAB PO SCH (05:58)
[2017-07-31] MEDS: (Novolin R) Insulin Human Regular 100 units/ml vial SC SCH ×2 (07:53→12:04)
[2017-07-31 07:54] VITALS: O2SAT 98
--- NOTE | 2017-07-31 13:38 | CP.PCM.DIS ---
Provider - Provider Date of Admission: 07/26/17 18:36 Attending physician: Emmy Abel MD Time Spent in preparation of Discharge (in minutes): 35 Diagnosis - Discharge Diagnosis (1) Acute exacerbation of CHF (congestive heart failure) Status: Acute (2) Atrial fibrillation with rapid ventricular response Status: Acute Hospital Course - Lab Results Lab Results: Most Recent Lab Values WBC 8.9 K/uL (4.8-10.8) 07/27/17 07:36 RBC 4.66 Mil/uL (3.80-5.20) 07/27/17 07:36 Hgb 13.1 g/dL (11.0-16.0) 07/27/17 07:36 Hct 39.0 % (34.0-47.0) 07/27/17 07:36 MCV 83.6 fL (81.0-99.0) 07/27/17 07:36 MCH 28.2 pg (27.0-31.0) 07/27/17 07:36 MCHC 33.7 g/dL (33.0-37.0) 07/27/17 07:36 RDW 15.1 % (11.5-14.5) H 07/27/17 07:36 Plt Count 274 K/uL (130-400) 07/27/17 07:36 MPV 8.8 fL (7.2-11.7) 07/27/17 07:36 Neut % (Auto) 61.8 % (50.0-75.0) 07/26/17 14:42 Lymph % (Auto) 21.7 % (20.0-40.0) 07/26/17 14:42 [place] % (Auto) 9.6 % (0.0-10.0) 07/26/17 14:42 Eos % (Auto) 6.0 % (0.0-4.0) H 07/26/17 14:42 Baso % (Auto) 0.9 % (0.0-2.0) 07/26/17 14:42 Neut # (Auto) 5.4 K/uL (1.8-7.0) 07/26/17 14:42 Lymph # (Auto) 1.9 K/uL (1.0-4.3) 07/26/17 14:42 [place] # (Auto) 0.8 K/uL (0.0-0.8) 07/26/17 14:42 Eos # (Auto) 0.5 K/uL (0.0-0.7) 07/26/17 14:42 Baso # (Auto) 0.1 K/uL (0.0-0.2) 07/26/17 14:42 PT 13.2 SECONDS (9.7-12.2) H 07/26/17 14:42 INR 1.2 07/26/17 14:42 APTT 34 SECONDS (21-34) 07/26/17 14:42 D-Dimer, Quantitative 279 ng/mlDDU (0-243) H 07/26/17 14:42 Sodium 140 mmol/L (132-148) 07/27/17 07:36 Potassium 4.3 mmol/L (3.6-5.2) 07/27/17 07:36 Chloride 105 mmol/L (98-107) 07/27/17 07:36 Carbon Dioxide 26 mmol/L (22-30) 07/27/17 07:36 Anion Gap 14 (10-20) 07/27/17 07:36 BUN 18 mg/dL (7-17) H 07/27/17 07:36 Creatinine 0.7 mg/dL (0.7-1.2) 07/27/17 07:36 Est GFR ( Amer) > 60 07/27/17 07:36 Est GFR (Non-Af Amer) > 60 07/27/17 07:36 POC Glucose (mg/dL) 136 mg/dL (65-110) H 07/31/17 11:28 Random Glucose 123 mg/dL (65-105) H 07/27/17 07:36 Calcium 8.9 mg/dl (8.6-10.4) 07/27/17 07:36 Magnesium 1.7 mg/dL (1.6-2.3) 07/26/17 14:42 Total Bilirubin 0.7 mg/dL (0.2-1.3) 07/27/17 07:36 AST 34 U/L (14-36) 07/27/17 07:36 ALT 54 U/L (9-52) H D 07/27/17 07:36 Alkaline Phosphatase 103 U/L (38-126) 07/27/17 07:36 Total Creatine Kinase 38 U/L (30-135) 07/27/17 07:36 CK-MB (Mass) 0.57 ng/mL (0.0-3.38) 07/27/17 07:36 Troponin I < 0.0120 ng/mL (0.00-0.120) 07/27/17 07:36 NT-Pro-B Natriuret Pep 1260 pg/mL (0-900) H 07/26/17 14:42 Total Protein 6.6 g/dL (6.3-8.3) 07/27/17 07:36 Albumin 3.6 g/dL (3.5-5.0) 07/27/17 07:36 Globulin 3.0 gm/dL (2.2-3.9) 07/27/17 07:36 Albumin/Globulin Ratio 1.2 (1.0-2.1) 07/27/17 07:36 Free T4 1.23 ng/dL (0.78-2.19) 07/26/17 14:42 Total T3 1.56 nmol/L (1.49-2.60) 07/26/17 14:42 TSH 3rd Generation 5.44 mIU/L (0.46-4.68) H 07/26/17 14:42 - Hospital Course Hospital Course: Pt is a 61yo female with past medical history of HTN, HCHOL, Hypothyroidism PE, DM2 presented to the emergency department for shortness of breathe. Patient reports that she has had bronchitis for the past three weeks and her breathing has not improved. Upon presentation to the ER ECG showed afib. Patient reports priot diagnosis of cardiac arrythmia but was unsure as to what type. IN ER PT BECAME HYPOTENSIVE FROM MULTIPLE SHORT TERM IV MEDICATION RESPONDED TO IV FLUIDS PT RESPONDED TO IV LASIX AND CARDEZAM TNI NEG ECHO N EF AND INCREASE LV FILLING DE PT STABLE F/U OUT PT WITH HER MODEL BUILDER DISPLAY Discharge Exam - Head Exam Head Exam: ATRAUMATIC, NORMAL INSPECTION, NORMOCEPHALIC Discharge Plan - Follow Up Plan Condition: GUARDED Disposition: HOME/ ROUTINE
--- NOTE | 2017-07-31 14:17 | PCM.HF ---
Heart Failure Core Measure - Heart Failure Ejection Fraction: 40 % or Greater KEITH Inhibitor Prescribed: No Contraindication/Reason for not providing: EF >40 Beta-Joanne Prescribed: Metoprolol Succinate Angiotensin II Receptor Joanne Prescribed: No Contraindication/Reason for not providing: EF >40 AnticoagulationTherapy for Atrial Fibrillation/Atrialflutter: Yes Aldosterone Antagonist Prescribed: No Contraindication/Reason for not providing: EF >40 Hydralazine Nitrate Prescribed: No Contraindication/Reason for not providing: EF >40 Implantable Cardioverter Defibrillator Therapy: No Contraindication/Reason for not providing: NO H/O PPM; EF >40 Cardiac Resynchronization Therapy Prescribed: No Contraindication/Reason for not providing: NO H/O PPM; EF >40 - Follow up Will be discharged to: Home Follow Up Date (must be within 7 days from discharge): 08/06/17 Follow Up Time: 09:00
--- NOTE | 2017-07-31 15:35 | CP.PCM.PN ---
Subjective - Date & Time of Evaluation Date of Evaluation: 07/31/17 Time of Evaluation: 15:31 - Subjective Subjective: PT CLEARED FOR D/C HOME TODAY PER DR. MONTERO. INFORMATION TECHNOLOGY INTERN DISCUSSED DC PLAN WITH PT AND SHE IS IN AGREEMENT AND HAPPY TO GO HOME TODAY. SHE WILL F/U WITH PMD, DR. Refugio DAVALOS, IN THE OFFICE WITHIN 5-7 DAYS. NEW RX CALLED IN TO PT'S PHARMACY; [facility] PT HAS BEEN WAITING SEVERAL WEEKS FOR SYMBICORT TO BE PRE- AUTHORIZED BY DR. DAVALOS'S OFFICE. PT TO [facility] THIS EVENING. DIETARY MODIFICATIONS AND LOW SODIUM DISCUSSED WITH THE PT. PT VERBALIZES ALL D/C INFORMATION AND NEW RX. NO FURTHER ORDERS. Objective - Vital Signs/Intake and Output Vital Signs (last 24 hours): Temp Pulse Resp BP Pulse Ox 97.4 F L 99 H 20 111/76 98 07/31/17 07:00 07/31/17 13:48 07/31/17 07:00 07/31/17 11:31 07/31/17 07:00 Intake and Output: 07/31/17 07/31/17 06:59 18:59 Intake Total 1400 300 Output Total 800 Balance 600 300 - Medications Medications: Current Medications Aspirin (Ecotrin) 81 mg PO DAILY [facility] Last Admin: 07/31/17 10:18 Dose: 81 mg Diltiazem HCl (Cardizem) 30 mg PO Q6 [facility] Last Admin: 07/31/17 11:32 Dose: 30 mg Furosemide (Lasix) 40 mg IVP DAILY [facility] Last Admin: 07/31/17 10:18 Dose: 40 mg Glipizide (Glucotrol Xl) 5 mg PO HS [facility] Last Admin: 07/30/17 22:03 Dose: 5 mg Lactated Ringer's (Lactated Ringer's) 1,000 mls @ 100 mls/hr IV .Q10H [facility] Last Admin: 07/27/17 01:40 Dose: Not Given Ibuprofen (Motrin Tab) 600 mg PO TID PRN PRN Reason: back pain Last Admin: 07/29/17 22:50 Dose: 600 mg Insulin Human Regular (Novolin R) 1 unit SC ACHS [facility] PRN Reason: Protocol Last Admin: 07/31/17 12:04 Dose: Not Given Levothyroxine Sodium (Synthroid) 75 mcg PO DAILY@0630 [facility] Last Admin: 07/31/17 05:58 Dose: 75 mcg Metformin HCl (Glucophage) 500 mg PO BID [facility] Last Admin: 07/31/17 10:18 Dose: 500 mg Metoprolol Succinate (Toprol Xl) 200 mg PO DAILY [facility] Montelukast Sodium (Singulair) 10 mg PO DAILY [facility] Last Admin: 07/31/17 10:18 Dose: 10 mg Rosuvastatin Calcium (Crestor) 5 mg PO HS [facility] Last Admin: 07/30/17 22:03 Dose: 5 mg - Labs Labs: 07/27/17 07:36 07/27/17 07:36 PT 13.2 SECONDS (9.7-12.2) H 07/26/17 14:42 INR 1.2 07/26/17 14:42 APTT 34 SECONDS (21-34) 07/26/17 14:42
[2017-07-31 16:38] VITALS: BP 135/79; PULSE 96; TEMP 97.6
[2017-08-01] MEDS ORDERED: Metoprolol Succinate 100 mg XL Tab PO SCH (10:00)
== END 2017-07-31 18:31 | disposition home or self-care (01) | DRG 127 ==
LOC: C.ER 12:49 → C.9E 18:36 → C.6T 19:24
PROVIDERS: ADMIT Internal Medicine Cardiovascular Disease; ATTEND Internal Medicine Cardiovascular Disease
DX: I11.0 Hypertensive heart disease with heart failure (principal); I48.91 Unspecified atrial fibrillation; I27.20 Pulmonary hypertension, unspecified; I50.9 Heart failure, unspecified; E11.9 Type 2 diabetes mellitus without complications; E03.9 Hypothyroidism, unspecified; E78.00 Pure hypercholesterolemia, unspecified; M17.0 Bilateral primary osteoarthritis of knee; Z86.711 Personal history of pulmonary embolism; Z87.891 Personal history of nicotine dependence; Z90.710 Acquired absence of both cervix and uterus